=== PATIENT | female | born 1980 | race Caucasian/White ===

== ENCOUNTER 2017-08-03 10:00 | Inpatient (IN) | payer OTHER ==
[~2017-08-03] VITALS: Ht 160 cm; Wt 79.4 kg
--- NOTE | 2017-08-03 10:00 | NUR ---
Placed in room 01. Placed on cardiac cath technologist, blood pressure machine and pulse oximeter. To gown for exam. Side rails up. Triaged at bedside
--- NOTE | 2017-08-03 10:01 | NUR ---
Dr. Pearson at bedside for evaluation
--- NOTE | 2017-08-03 10:03 | NUR ---
Pt presents to ER c/o facial numbness and tingling on L side of face that began this morning. Pt denies any pain, no headache, denies N/V/SOB. Pt reports history of DVT two years ago. Pt in no acute distress, no facial drooping, muscle strength equal on bilateral upper extremities, pt speaking full sentences, pt able to ambulate without difficulty.
[2017-08-03 10:11] VITALS: BP_SYST 135
--- NOTE | 2017-08-03 10:15 | NUR ---
# 22 gauge angiocath placed to LAC. Use of asceptic technique. Opsite placed over site. Blood return noted. Blood for lab drawn from site. Flushed with 10 cc of normal saline. No evidence of infiltration noted. Patient tolerated well.
--- NOTE | 2017-08-03 10:20 | NUR ---
Radiology at bedside.
[2017-08-03 10:41] LABS: BILIRUBIN,URINE NEGATIVE (NEGATIVE); BLOOD, URINE NEGATIVE (NEGATIVE); CLARITY/URINE SL CLOUDY (CLEAR); COLOR,URINE YELLOW (YELLOW); GLUCOSE,URINE NEGATIVE (NEGATIVE); KETONES,URINE NEGATIVE (NEGATIVE); LEUKOCYTE ESTERASE ,URINE 2+ (NEGATIVE); NITRITE, URINE NEGATIVE (NEGATIVE); PROTEIN URINE NEGATIVE (NEGATIVE); UROBILINOGEN,URINE 0.2 (0.2-1.0)
[2017-08-03 10:49] LABS: CALCIUM 9.1 mg/dL (8.4-11.0); CREATININE 0.65 mg/dL (0.55-1.30); POTASSIUM 3.6 mmol/L (3.5-5.1)
[2017-08-03 10:54] LABS: ALBUMIN 3.8 g/dL (3.4-4.8); TOTAL BILIRUBIN 0.5 mg/dL (0.0-1.0)
[2017-08-03 11:05] LABS: BASOPHILS # (AUTO) 0.1 K/uL (0.0-0.2); BASOPHILS % (AUTO) 1.5 % (0.0-2.0); EOSINOPHILS # (AUTO) 0.1 K/uL (0.0-0.4); EOSINOPHILS % (AUTO) 1.2 % (0.0-4.0); HEMATOCRIT 38.9 % (36-48); HEMOGLOBIN 12.1 g/dL (12.0-16.0); LYMPHOCYTES # (AUTO) 1.6 K/uL (1.0-5.5); MEAN CORPUSCULAR HEMOGLOBIN 23 pg (27-31); MEAN CORPUSCULAR HGB CONC 31 % (32-36); MEAN CORPUSCULAR VOLUME 74 fL (79.0-98.0); MONOCYTES # (AUTO) 0.5 K/uL (0.0-1.0); MONOCYTES % (AUTO) 7.6 % (1.7-9.3); NEUTROPHILS # (AUTO) 4.9 K/uL (1.8-7.7); NEUTROPHILS % (AUTO) 67.7 % (40.0-70.0); PLATELET COUNT (AUTO) 295 K/uL (130-430); RED BLOOD CELL COUNT(AUTO) 5.28 MIL/uL (4.2-6.2); RED CELL DISTRIBUTION WIDTH 15.5 % (9.0-15.0); WHITE BLOOD COUNT (AUTO) 7.2 K/uL (4.8-10.8)
[2017-08-03 11:11] LABS: BACTERIA,URINE MANY /HPF (None Seen); MUCUS,URINE 1+ /LPF (None Seen); RBC,URINE 0-3 /HPF (0-3)
[2017-08-03 11:14] LABS: PROTHROMBIN TIME 9.7 SECS (9.5-12.5)
--- NOTE | 2017-08-03 11:15 | NUR ---
Patient transported to radiology via gurney, accompanied by rad staff.
--- NOTE | 2017-08-03 11:26 | NUR ---
Returned from radiology, back to [facility].
--- NOTE | 2017-08-03 12:10 | NUR ---
Patient transported to radiology via wheelchair, accompanied by rad staff.
--- NOTE | 2017-08-03 12:46 | NUR ---
Pt still with radiology for MRI.
--- NOTE | 2017-08-03 12:55 | NUR ---
Returned from radiology, back to [facility].
--- NOTE | 2017-08-03 13:10 | NUR ---
Transfer to tele via ACLS protocol. Licensed nurse present. IV present no signs or symptoms of infiltration.
--- NOTE | 2017-08-03 13:10 | NUR ---
Patient will be admitted to care of Dr. Saha. Admitted to tele unit. Will go to room 135. Belongings list completed. Summary report printed. Report will be given at bedside.
--- NOTE | 2017-08-03 13:12 | NUR ---
Admission Notes Patient will be admitted to tele unit with a diagnosis of CVA vs TIA. Nurse is Nishant.
[2017-08-03 13:17] VITALS: BP_SYST 141
--- NOTE | 2017-08-03 13:24 | NUR ---
CONSULTATION PAGED REASON FOR CONSULTATION:CVA VS TIA WAS CONSULT CALLED?Y PERSON WHO WAS NOTIFIED:SAULO CONSULTING PHYSICIAN:IHSAN CHARLTON LINE CONSTRUCTION ENGINEER SPECIALTY:NEURO LINE CONSTRUCTION ENGINEER PHONE NUMBER:[phone] ORDERING PHYSICIAN:YUMIKO HOOVER
--- NOTE | 2017-08-03 14:15 | NUR ---
PATIENT AWAKE ALERT. DENIES ANY CHEST PAIN/ SHORTNESS OF BREATH . PATIENT ORIENTED TO CALL LIGHT, BED IN THE LOWEST POSITION. SAFETY PRECAUTIONS OBSERVED.
--- NOTE | 2017-08-03 15:21 | NUR ---
MD KIRKLAND CALLED [facility] AT SPOKE WITH DR.RIZVI JACKSON ABID AGING ROOM OPERATOR.
[2017-08-03] MEDS ORDERED: HYDROcodone/ACETAMIN 5-325 MG TAB (NORCO/ VICODIN) PO ONE (15:45)
--- NOTE | 2017-08-03 16:19 | NUR ---
pain med patient medicated as ordered at this time, will reassess.
[2017-08-03 16:46] VITALS: BP_SYST 120
--- NOTE | 2017-08-03 17:27 | NUR ---
PATIENT RESTING: Patient resting quietly. No acute distress noted. Vital signs within normal range.
--- NOTE | 2017-08-03 18:34 | NUR ---
PAGED AT THIS TIME FOR PAIN MEDICATIONS- DR RABAGO- DR MORALES IS STRATEGIC PLANNING MANAGER.
--- NOTE | 2017-08-03 18:35 | NUR ---
CLOSING NOTE PATIENT AWAKE ALERT AND ORIENTED, COMPLAINING OF PAIN AT THIS TIME. MD PAGED. ALL NEEDS MET THROUGH SHIFT. SAFETY PRECAUTIONS OBSERVED, WILL ENDORSE CARE TO LICENSED PROFESSIONAL COUNSELOR.
[2017-08-03 19:00] VITALS: BP_SYST 123
[2017-08-03] MEDS ORDERED: KETOROLAC TROMETHAMINE 15 MG VIAL IVP PRN (19:00)
--- NOTE | 2017-08-03 19:15 | NUR ---
change of shift.pt.presents slight anxiety status.pt.states she presents pain:head/eyes. i am to f/u re:pain mgx.pt.presents general status:unease.room air stable status.iv access: lock.call light/telephone w/in the pt's reach.
[2017-08-03 20:00] VITALS: BP_SYST 123
--- NOTE | 2017-08-03 20:00 | NUR ---
pt.assessed.v/s assessed:values w/in normal limits.i have conveyed to the pt.that snacks are available throughout the shift.no requests@this hour.pt.has stated and apprised me of her medical hx;includes prior hx of migraines,s/s of previous numbness/weakness to rt.side of body 20years ago.inconclusive results per her md's@the time.pt.states pain:head/eyes,bilateral numbness/heaviness:lt.side of face,mouth,tongue.i have provided warm compress;location neck.to f/u re;efficacy of the warm compress and review emar:pain medication.call light/ telephone w/in the pt's reach.
[2017-08-03] MEDS: HYDROcodone/ACETAMIN 5-325 MG TAB (NORCO/ VICODIN) PO PRN (20:37)
--- NOTE | 2017-08-03 20:40 | NUR ---
i have administered norco:5/325mg po 1 tab.i inquired if the warm campos was effective,pt.stated yes. i am to f/u re:efficacy of the norco tablet.
--- NOTE | 2017-08-03 22:00 | NUR ---
pt.assessed.pt.presents quiescent affect;calm,somnolent.pt.presents general status absent distress/discomfort.no c/o pain,nausea.call light/telephone w/in the pt's reach.
--- NOTE | 2017-08-04 | NUR ---
pt.assessed.v/s assessed;values w/in normal limits.pt.capable to reposition self.pt. awake.pt.requested if i may re-heat warm compress;i have attended to the requests. i inquired if the pt.presents requests pt.stated no.she is fine and comfortable.pt.presents no c/o pain,nausea.@this hour.call light/telephone w/in the pt's reach.
[2017-08-04 00:18] VITALS: BP_SYST 112
--- NOTE | 2017-08-04 02:00 | NUR ---
pt.assessed.pt.presents quiescent affect;calm,somnolent.pt.presents general status:absent distress/discomfort. pt.capable to reposition self.call light/telephone w/in the pt's reach.
--- NOTE | 2017-08-04 04:00 | NUR ---
pt.assessed.pt.presents quiescent affect;calm,somnolent.pt.presents general status absent distress/discomfort.pt.capable to reposition self.call light/telephone w/in the pt's reach.
--- NOTE | 2017-08-04 06:12 | NUR ---
pt.assessed.pt.presents quiescent affect;calm,somnolent.pt.presents general status absent distress/discomfort. respiratory status absent distress/discomfort.pt.capable to reposition self.reshma light/telephone w/in the pt's reach.
[2017-08-04 08:10] VITALS: BP_SYST 116
--- NOTE | 2017-08-04 08:24 | NUR ---
OPENING NOTES RECEIVED REPORT FROM SYSTEM SOFTWARE DEVELOPER NURSE. PT IS A/OX4. PT IS ON RA TOLERATING WELL. NO DISTRESS NOTED. SAFETY MEASURES IN PLACE, BED TO LOWEST POSITION, SIDE RAILS UPX3, CALL LIGHT WITHIN REACH. WILL CONTINUE TO MONITOR.
--- NOTE | 2017-08-04 08:26 | NUR ---
ROUNDS PT C/O PAIN 4/10 BEHIND RIGHT EAR. PROVIDED WARM COMPRESS. WILL CONTINUE TO MONITOR.
--- NOTE | 2017-08-04 09:54 | NUR ---
ROUNDS PT IS IN BED SLEEPING. NO DISTRESS NOTED. SAFETY MEASURES IN PLACE, BED TO LOWEST POSITION, SIDE RAILS UPX2, CALL LIGHT WITHIN REACH. WILL CONTINUE TO MONITOR.
[2017-08-04] MEDS: HYDROcodone/ACETAMIN 5-325 MG TAB (NORCO/ VICODIN) PO PRN (11:08)
[2017-08-04] MEDS ORDERED: RANI-362 PO (11:34)
[2017-08-04] MEDS ORDERED: PRO40 PO (11:34)
[2017-08-04] MEDS ORDERED: DICY10CA59 PO (11:34)
[2017-08-04 12:20] VITALS: BP_SYST 118
--- NOTE | 2017-08-04 12:28 | NUR ---
ROUNDS PT RECEIVED PRN MEDICATION FOR HEADACHE. PT STATES MEDICATION WAS NOT HELPFUL. GAVE WARM COMPRESS AND PROVIDED COMFORT MEASURES. PT STATES SHE HAS MOUTH AND LEFT SIDED FACE NUMBNESS. PT ON RA TOLERATING WELL. NO DISTRESS NOTED. PT HAS SCD'S TO B/L LEGS. SAFETY MEASURES IN PLACE, BED TO LOWEST POSITION, BED ALARM IS ON, SIDE RAILS UPX3, CALL LIGHT WITHIN REACH. WILL CONTINUE TO MONITOR.
--- NOTE | 2017-08-04 13:33 | NUR ---
ROUNDS PT IN BED RESTING. PT STATES HEADACHE IS 4/10. PT STATES WARM COMPRESS HELPED. SCD'S ON. SAFETY MEASURES BED TO LOWEST, BED ALARM IN ON, SIDE RAILS UPX2, CALL LIGHT WITHIN REACH.
[2017-08-04] MEDS ORDERED: SUMAtriptan SUCCINATE 50 MG TABLET PO ONE (14:45)
--- NOTE | 2017-08-04 14:45 | NUR ---
MD ROUNDS DR. MA SAW PT.
--- NOTE | 2017-08-04 15:52 | NUR ---
ROUNDS PT IN BED RESTING. PT STATES HEADACHE IS 1/10, MEDICATION WAS HELPFUL. NO DISTRESS AT THIS TIME. PT HAS SCD'S ON. SAFETY MEASURES IN PLACE, BED TO LOWEST POSITION, BED ALARM IN ON, SIDE RAILS UPX2, CALL LIGHT WITHIN REACH. WILL CONTINUE TO MONITOR.
[2017-08-04 16:04] VITALS: BP_SYST 117
--- NOTE | 2017-08-04 16:11 | NUR ---
NAUSEA PT C/O OF NAUSEA. PROVIDED PT SALTINE CRACKERS. NOTIFIED DR. MA. RECEIVED NEW ORDER AND WILL CARRY OUT.
[2017-08-04] MEDS ORDERED: ONDANSETRON 4 MG ODT TAB PO PRN (16:15)
--- NOTE | 2017-08-04 18:05 | NUR ---
ROUNDS PT IS EATING DINNER. PT STATES THAT IS MILD NAUSEOUS BUT DOES NOT WANT TO TAKE MEDICATION. NO DISTRESS NOTED. PT DENIES ANY PAIN. SAFETY MEASURES IN PLACE, BED TO LOWEST POSITION, BED ALARM IS ON, SIDE RAILS UPX2, CALL LIGHT WITHIN REACH. WILL CONTINUE TO MONITOR.
[2017-08-04 19:50] VITALS: BP_SYST 125
--- NOTE | 2017-08-04 19:53 | NUR ---
CLOSING NOTE GAVE REPORT TO RUNSTITCHING MACHINE OPERATOR NURSE. PT IS BED RESTING. PT ON RA TOLERATING WELL. NO SOB NOTED. NO DISTRESS NOTED. PT STATES HEADACHE IS 1/10. PT REFUSES SCD'S AT THIS TIME. SAFETY MEASURES IN PLACE, BED TO LOWEST POSITION, BED ALARM IS ON , SIDE RAILS UPX3, CALL LIGHT WITHIN REACH. ENDORSED TO RUNSTITCHING MACHINE OPERATOR NURSE.
--- NOTE | 2017-08-04 19:55 | NUR ---
INITIAL NOTE Patient resting on the bed. No acute distress. Respiration even and unlabored. AAO x 4. Stated that the pain medication was helpful, only 1/10 at this time. Skin warm and dry to touch. SL intact to LAC, no redness, no swelling, patent. Discussed the safety issue, use call light when need help, and plan of care, verbally understanding. Safety measure maintained. Bed locked with low position, side rails up. Call light within reached. Will continue to monitor.
--- NOTE | 2017-08-04 20:10 | NUR ---
DISCHARGE Dr. Harper visited patient. Informed Dr. Harper regarding patient with UTI and in the note of Dr. Simmons wrote plan of antibiotic. However, still no order of antibiotic. Dr. Harper stated "I already talked to Dr. Llanos, patient can go home tonight and will write prescription of Cipro for UTI."
[2017-08-04] MEDS ORDERED: CIPR-260 PO (20:13)
--- NOTE | 2017-08-04 20:40 | NUR ---
NOTE Talked with patient regarding the discharge home tonight. Explained the UTI and MD write the prescription of antibiotic and she can take it at home. Patient stated that no one will pick her home. She can drive herself and her car in the parking lot.
[2017-08-04 21:38] VITALS: BP_SYST 125
--- NOTE | 2017-08-04 22:15 | NUR ---
D/C Patient Patient given medication reconciliation form and D/C instructions. Exit Care provided. Patient verbalized understanding. Discussed with patient the results and treatment provided. Ambulatory with steady gait for discharge to home. Patient in stable condition, ID band removed. IV catheter removed, intact and dressing applied, no active bleeding. Rx of Cipro sent to [facility], the address and phone number given. Instructed patient follow up with Martin Alonso, phone number given, verbally understanding. Patient educated on pain management. All belongings sent with patient.
== END 2017-08-04 22:15 | disposition home or self-care (01) | DRG 103 ==
LOC: SED 10:00 → STU 12:09 → OBSVTOIN 08-04 16:38
PROVIDERS: ADMIT Internal Medicine; ATTEND Internal Medicine
DX: G43.909 Migraine, unspecified, not intractable, without status migrainosus (principal); G51.0 Bell's palsy; N39.0 Urinary tract infection, site not specified; Z86.718 Personal history of other venous thrombosis and embolism; Z98.51 Tubal ligation status
CPT/HCPCS: 36415; 70450-TC; 70551; 71045; 80053; 80061; 81000-TC; 84484; 85025; 85610-TC; 85730-TC; 87086; 87186-TC; 93005; G0378